=== PATIENT | female | born 1965 | race Hispanic/Latino ===

== ENCOUNTER 2021-11-05 09:46 | Emergency (ER) | payer OTHER ==
[~2021-11-05] VITALS: Ht 152.4 cm; Wt 74.8 kg
[2021-11-05 11:53] VITALS: BP 141/71
== END 2021-11-05 12:44 | disposition home or self-care (01) ==
LOC: EDH 09:46
DX: S06.0X0A Concussion without loss of consciousness, initial encounter (principal); S80.02XA Contusion of left knee, initial encounter; X58.XXXA Exposure to other specified factors, initial encounter; Y93.89 Activity, other specified; Y92.89 Other specified places as the place of occurrence of the external cause; Y99.8 Other external cause status
CPT/HCPCS: 70450; 73562